=== PATIENT | female | born 1965 | race Caucasian/White ===

== ENCOUNTER → 2024-01-25 10:54 | Outpatient (REF) | payer OTHER, SELFPAY | LOC: HWRAD 10:54 | PROVIDERS: ATTENDING PHYSICIAN Physician Assistant Surgical; FAMILY PHYSICIAN Nurse Practitioner | DX: M46.1 Sacroiliitis, not elsewhere classified (principal) | CPT/HCPCS: 72170 ==

== ENCOUNTER 2025-01-02 21:16 | Emergency (ER) | payer OTHER, SELFPAY ==
[2025-01-02 21:18] VITALS: BP 154/84
[2025-01-02 22:26] VITALS: BP 133/60
[2025-01-02 22:33] LABS: % Basophils 0.5 % (0-2); % Eosinophils 1.1 % (0-6); % Immature Granulocytes 0.4 % (0-0.5); % Lymphocytes 10.4 % (20.5-51.1); % Monocytes 6.8 % (1.7-9.3); % Neutrophils 80.8 % (42.2-75.2); Absolute Basophils 0.1 10^3/uL (0-0.2); Absolute Eosinophils 0.1 10^3/uL (0-0.7); Absolute Lymphocytes 1.1 10^3/uL (1.2-3.4); Absolute Monocytes 0.7 10^3/uL (0.1-0.6); Absolute Neutrophils 8.2 10^3/uL (1.4-6.5); Hematocrit 42.3 % (37.0-47.0); Hemoglobin 13.7 g/dL (12.0-16.0); Mean Corp Hgb Conc. 32.4 g/dL (33.0-37.0); Mean Corpuscular Hgb 29.1 pg (27.0-31.0); Mean Corpuscular Volume 89.8 fL (81.0-99.0); Mean Platelet Volume 9.6 fL (7.4-10.4); Nucleated Red Blood Cells % 0 %; Platelet Count 279 10^3/uL (130-400); Red Blood Cell Count 4.71 10^6/uL (4.20-5.40); Red Cell Dist. Width 14.5 % (11.5-14.5); Urine Albumin Negative (Neg - Trace); Urine Bilirubin Negative (Negative); Urine Character Clear (Clear); Urine Color Yellow; Urine Glucose Negative (Negative); Urine Ketone Negative (Negative); Urine Leukocyte 2+ (Negative); Urine Nitrite Negative (Negative); Urine Occult Blood Negative (Negative); Urine Specific Gravity 1.015 (<1.030); Urine Urobilinogen 2+ (Neg - 1+); White Blood Cell Count 10.1 10^3/uL (4.8-10.8)
[2025-01-02 22:39] LABS: Urine Bacteria Few (Negative); Urine Red Blood Cell 0-2 /HPF (0-2)
[2025-01-02 22:43] LABS: INR 0.91; PT 12.6 Sec (11.4-14.6)
[2025-01-02 22:44] LABS: APTT 26.3 Sec (23.4-35.0)
[2025-01-02 22:49] LABS: Blood Urea Nitrogen 22 mg/dl (7-17); Calcium 9.3 mg/dl (8.4-10.2); Carbon Dioxide 34 mmol/L (22-30); Chloride 104 mmol/L (98-107); Glucose 111 mg/dl (70-99); Lipase 81 U/L (23-300); Sodium 141 mmol/L (135-145); eGFR > 60.00
[2025-01-02 23:00] VITALS: BP 145/66
[2025-01-02 23:03] LABS: Troponin I < 0.012 ng/ml
[2025-01-03 00:08] VITALS: BP 136/66
--- NOTE | 2025-01-03 00:26 | ED.GENMED ---
History of Present Illness
General
Chief Complaint: Abdominal Pain
Source: patient and family
Time Seen by Provider: 01/02/25 21:31
Nursing documentation reviewed up to this point in time: agreed with
History of Present Illness
History of Present Illness:
Pleasant 59-year-old female presents to the emergency department with left upper quadrant abdominal pain. She states that it began around 3 PM today. The pain was exacerbated by food. She did have a bowel movement which did not affect her
symptoms. Denies fever, chills, nausea or vomiting. Reports no chest pain or shortness of breath. Denies any previous abdominal surgeries. Reports no radiation to her pain.
Review of Systems
Review of Systems
Allergies reviewed?: Yes
Other source history: family
All Other Systems: ROS reviewed and negative except as documented in HPI and ROS
Constitutional: Reports no symptoms
EENT: Reports no symptoms
Respiratory: Reports no symptoms
Cardiac: Reports no symptoms
ABD/GI: Reports abdominal pain
: Reports no symptoms
Musculoskeletal: Reports no symptoms
Skin: Reports no symptoms
Neurological: Reports no symptoms
Endocrine: Reports no symptoms
Hematologic/Lymphatic: Reports no symptoms
Psychiatric: Reports no symptoms
Phy Exam
General Physical Exam
General Presentation: well appearing and no apparent distress
General Skin: warm and dry
General Habitus: normal
General Mental: alert
General Hydration: appears well hydrated
ENT Exam
ENT Exam: EOMI, pharynx normal, neck supple and normocephalic
Eye Exam
Eye Exam: PERRL, cornea clear and conjunctiva normal
Cardiovascular Exam
Cardiovascular Exam: regular rate/rhythm, no edema, no murmur and normal peripheral pulses
Pulmonary Exam
Pulmonary Exam: lungs clear, no respiratory distress, no rales, no crackles, no rhonchi, no stridor, no wheezing and no cough
Gastrointestinal Exam
Gastrointestinal Exam: normal bowel sounds, non tender, soft, no organomegaly, no pulsatile mass, non distended and other (No McBurney's point tenderness. Negative Rivera sign. Good bowel sounds x 4 quadrants. No tenderness to palpation at time
of exam.)
Neurological Exam
Neurological Exam: alert, oriented x3, no motor deficits and speech normal
Musculoskeletal Exam
Musculoskeletal Exam: full ROM and no edema
Skin Exam
Skin Exam: normal color, warm/dry, no rash and no petechia
Psychiatric Exam
Psychiatric Exam: normal mood/affect
Course
Orders/Labs/Results
Orders:
Orders
01/02/25 21:17
EKG [Electrocardiogram (*1)] Urgent
Reason for Study: Abdominal Pain
EKG- Treatment ONCE
01/02/25 22:24
Basic Metabolic Panel Urgent
Complete Blood Count/With Diff Urgent
Lactic Acid Urgent
Lipase Urgent
PTT Urgent
Prothrombin Time Urgent
Troponin I Urgent
Urinalysis Reflex To Culture Urgent
Date Specimen was Collected: 01/02/25
Time Specimen was Collected: 22:03
Urine Microscopic Reflex Cult Urgent
Urine Culture Urgent
RAJI Source: U
Specimen Description:
Date Specimen was Collected: 01/02/25
Time Specimen was Collected: 22:03
01/02/25 23:03
CT Abd/pelvis W Iv Cont Urgent
Comment:
Reason For Exam: diffuse abd pain
Abnormal Lab Results
01/02/25
22:24
MCHC 32.4 L g/dL
(33.0-37.0)
Absolute Neuts (auto) 8.2 H 10^3/uL
(1.4-6.5)
Absolute Lymphs (auto) 1.1 L 10^3/uL
(1.2-3.4)
Absolute Monos (auto) 0.7 H 10^3/uL
(0.1-0.6)
Neutrophils % 80.8 H %
(42.2-75.2)
Lymphocytes % 10.4 L %
(20.5-51.1)
Carbon Dioxide 34 H mmol/L
(22-30)
BUN 22 H mg/dl
(7-17)
Glucose 111 H mg/dl
(70-99)
Urine Urobilinogen 2+ A
(Neg - 1+)
Leukocyte Esterase Rfl 2+ A
(Negative)
Urine WBC (Reflex) 11-15 A /HPF
(0-5)
Urine Bacteria (Reflex) Few A
(Negative)
01/02/25 22:24
01/02/25 22:24
Vital Signs
Initial and Last Documented VS:
Initial Vital Signs
Temp Pulse Resp BP Pulse Ox
97.5 F 89 15 154/84 99
01/02/25 21:18 01/02/25 21:18 01/02/25 21:18 01/02/25 21:18 01/02/25 21:18
Last Documented Vital Signs
Temp Pulse Resp BP Pulse Ox
97.5 F 74 21 148/75 94
01/02/25 21:18 01/03/25 01:00 01/03/25 01:00 01/03/25 01:00 01/03/25 01:00
*Radiology
Radiology exam reviewed: radiology read reviewed
*Pulse Oximetry
Patient hypoxic: no
*Critical Care Note
Total Time (30-74mins, 75-104mins- exclusive of procedures): Not Applicable
Update Note
Update Note:
CT A/P W/IV CONTRAST
IMPRESSION:
No definite CT findings to account for the reported pain/symptoms.
No appendicitis or colitis.
No evidence of small bowel obstruction.
No free fluid or free air.
Unremarkable CT appearance of the gallbladder, biliary tract, and pancreas.
No evidence of hydroureteronephrosis or obstructing stone.
Unremarkable appearance of the pelvic viscera.
No AAA.
Case finalized at 1222am ET.
ED Attending Note
-
Portions of this chart may have been created with voice recognition software.� Occasional wrong word or��sound alike� substitutions may have occurred due to the inherent limitations of voice recognition software.
Discharge Plan
Departure
Patient Disposition: Home (Routine Discharge)
Date of Disposition: 01/03/25
Time of Disposition: 00:36
Patient with high blood pressure during this ER visit?: Yes
Discharge Problem:
Abdominal pain
Instructions: Abdominal Pain
Prescriptions:
No Action
multivitamin [Daily Vitamin] Tablet
1 tab PO DAILY
cyclobenzaprine 10 mg Tablet
10 mg PO HS
levothyroxine [Synthroid] 175 mcg Tablet
175 mcg PO DAILY
Rx Instructions:
takes 175 mcg x2 tab 1 time per week
cetirizine [Zyrtec] 10 mg Tablet
10 mg PO DAILY
lisinopril-hydrochlorothiazide 20-12.5 mg Tablet
1 tab PO DAILY
hydrocodone-acetaminophen 5-325 mg Tablet
1 tab PO Q6H PRN (Reason: pain)
rizatriptan 10 mg Tablet
10 mg PO PRN PRN (Reason: headaches)
etodolac 500 mg Tablet
500 mg PO BID
fluticasone propionate 50 mcg/actuation [place],Suspension
1 spray INTRANASAL BID
esomeprazole magnesium [Nexium] 20 mg Capsule,Delayed Release(Dr/Ec)
20 mg PO DAILY
duloxetine 60 mg Capsule,Delayed Release(Dr/Ec)
120 mg PO DAILY
pregabalin 200 mg Capsule
200 mg PO TID
Vitamin D3 100 mcg (4,000 unit) Capsule
100 mcg PO DAILY
Ajovy Autoinjector 225 mg/1.5 mL Auto-Injector
225 mg SC QMONTH
Referrals:
Celio Castillo CRNP [Family Provider] -
Activity Restrictions/Additional Instructions:
Thank You for choosing [facility].
It was a pleasure meeting you and taking part in your care. We hope for your continued healing and wellness.
Please read discharge instructions in their entirety. However, they are for general education and may not describe your exact diagnosis at discharge. Information on your ER visit and medical conditions were discussed with you along with appropriate
follow up information...
If indicated, please take your medications as instructed and indicated on discharge paperwork.
Please schedule a follow up appointment as directed. Call to schedule an appointment
Please return to the emergency department with ANY change in, persisting, or worsening of symptoms. If any of your symptoms do not improve, or persist, or become more severe within 6-12 hours, please return to the emergency department for further
care.
Please return to the emergency department if you develop a headache, neck pain/stiffness, fever greater than 100.4F, chest pain, shortness of breath, persistent nausea, vomiting, slurred speech, difficulty walking, numbness/tingling, weakness, signs
of infection or any other symptoms that are worrisome to you.
If you have any questions or concerns please do not hesitate to call the Hospital at or E-mail me directly at [email or web address]
Interventions
Interventions:
*Risk Screen - Suicide Last Done: 01/02/25 21:18
*General Assessment Last Done: 01/02/25 21:18
*Neglect/Abuse Screening Last Done: 01/02/25 21:18
*ED- Fall Risk Assessment Last Done: 01/03/25 00:09
*ED COVID-19 Vaccine History Last Done: 01/03/25 00:09
GE-Mvnhzv-Vtojdobqyf Assessment Last Done: 01/02/25 22:00
Discharge Date and Time
Print Language: SPANISH
[2025-01-03 01:00] VITALS: BP 148/75
== END 2025-01-03 01:15 | disposition home or self-care (01) ==
LOC: EMR 21:16
PROVIDERS: EMERGENCY PHYSICIAN Student in an Organized Health Care Education/Training Program
DX: R10.12 Left upper quadrant pain (principal); I10 Essential (primary) hypertension; K21.9 Gastro-esophageal reflux disease without esophagitis; M54.9 Dorsalgia, unspecified; G89.29 Other chronic pain; E03.9 Hypothyroidism, unspecified; F41.9 Anxiety disorder, unspecified; F32.A Depression, unspecified; Z91.040 Latex allergy status; Z88.5 Allergy status to narcotic agent; Z88.8 Allergy status to other drugs, medicaments and biological substances; Z91.018 Allergy to other foods; Z91.048 Other nonmedicinal substance allergy status
CPT/HCPCS: 99284; 74177; 80048; 81003; 81015; 83605; 83690; 84484; 85025; 85610; 85730; 87086; 93005; Q9967

== ENCOUNTER 2025-01-08 13:50 | Day surgery (SDC) | payer OTHER, SELFPAY ==
[2025-01-08] VITALS (9 sets, daily range): BP systolic 112–193; BP diastolic 56–81; BMI 53.2; BMI 52.3
--- NOTE | 2025-01-08 09:13 | ED.GENMED ---
History of Present Illness
General
Chief Complaint: Chest Pain
Time Seen by Provider: 01/08/25 09:12
History of Present Illness
History of Present Illness:
TIME OF INITIAL ENCOUNTER: 9:15 AM
HPI: The patient was seen here with upper abdominal pain last week and at that time had relatively unremarkable ED workup including CT abdomen pelvis. Mild hepatosplenomegaly was noted. Today, she had chest discomfort that started around 3 AM. It
feels somewhat similar to what happened last week. Although she has no shortness of breath she states that the pain worsens when she takes a breath in. She feels a sensation of an near the sternal notch.
EXAM:
GENERAL: Appears somewhat uncomfortable
HEENT: Moist oral mucosa
CARDIOVASCULAR: No murmurs, normal heart rate, regular rhythm, mild to moderate anterior lower chest wall tenderness
PULMONARY: No respiratory distress, breath sounds are clear and equal
ABDOMEN: Soft with no peritoneal signs, mild right upper quadrant tenderness, elevated BMI
NEUROLOGIC: Excellent strength all extremities, no coordination deficits
PSYCHIATRIC: Appears tearful and somewhat anxious at time appropriate mental status, normal insight and judgement
EXTREMITIES: Nontender, no edema, moves all extremities equally
SKIN: No rash, no lesions
NUMBER AND COMPLEXITY OF PROBLEMS ADDRESSED AT THE ENCOUNTER
� Chronic conditions affecting care: High blood pressure, hypothyroidism, anxiety/depression
� Acute Exacerbation and/or Progression of Chronic Illness: This is an acute problem
� Differential Diagnosis includes: Anxiety attack, biliary colic,
AMOUNT AND/OR COMPLEXITY OF DATA TO BE REVIEWED AND ANALYZED
� I performed an independent evaluation of and my interpretation is:
EKG: Sinus 78, leftward axis deviation, nonspecific ST abnormality
CT:
X-rays:
Laboratory Studies: White count normal, troponin, LFTs, lipase
Other: Ultrasound shows positive sonographic Rivera sign
� Review of other/old records: CAT scan from 01/02/2025 showed no acute abnormality
� Clinical information was obtained by an independent historian: I spoke to at bedside
� Prescriptions/Medications Considered but not given:
� Further testing considered but not performed:
RISK OF COMPLICATIONS AND/OR MORBIDITY OR MORTALITY OF PATIENT MANAGEMENT
� Social determinants of health affecting care: Lives at home
� Discussion with other providers: Discussed with Dr. Perez
� Escalation of care including admission/observation vs risk of discharge considered: The patient appears somewhat tearful and anxious and uncomfortable. She was given Toradol and Ativan. She states she does take anxiety
medicine normally but did not take any today.
ANY OTHER UPDATES:
The patient was given Ativan and Toradol and on reassessment she feels and appears improved. However she still has right upper quadrant tenderness and does have abnormal ultrasound imaging. Discussed with Dr. Perez.
1 PM: The patient was seen by Dr. Perez who agrees to admit to his service for further management. Zosyn ordered.
Phy Exam
Physical Exam
Physical Exam:
See HPI
Scores
Heart Score for Chest Pain Patients
STEMI patient?: Not applicable
Course
Orders/Labs/Results
Orders:
Orders
01/08/25 08:57
Electrocardiogram (*1) Urgent
Reason for Study: Chest Pain
EKG- Treatment ONCE
01/08/25 09:26
Ketorolac [Toradol] 15 mg IV NOW STA
Lorazepam [Ativan] 1 mg IV NOW STA
01/08/25 09:27
CR Chest - 2 Views Urgent
Comment:
Reason For Exam: pain
01/08/25 09:29
US Abdomen Complete/Upper Urgent
Comment:
Reason For Exam: upper pain
01/08/25 09:44
Complete Blood Count/With Diff Urgent
Comprehensive Metabolic Panel Urgent
Comment: ADD ON
Direct Bilirubin Urgent
Comment: ADD ON
Lipase Urgent
Troponin I Urgent
01/08/25 13:13
Piperacillin/Tazo 3.375 Gram [Zosyn] 3.375 gram in 50 ml IV NOW
01/08/25 13:23
Admit/Transfer Patient As Directed
Co-Sign Provider:
Level of Care: Observation services
Assign to:: Medical/Surgical
Physician / Group: Gen surg/Chris
Diagnosis: Cholecystitis
PRN Pain Medication Management As Directed
May give lesser potent ordered pain med per pt: Yes
preference::
Protocol:: Medication orders for pain may be administered in a
manner that supports deferring to patient preference
when the pt is:
- Requesting an ordered lesser potent pain medication.
Least to most potent pain medications are defined
as: acetaminophen < NSAID < tramadol < opioids
(morphine, oxycodone, hydromorphone).
- Requesting a lesser dose of the same medication IF
ORDERED.
- Requesting a less intrusive route of administration
if both routes are prescribed by the provider (PO <
IV).
01/08/25 13:25
Code Status As Directed
Resuscitation Status: Full Code
01/08/25 13:43
Add On- LAB Routine
Tests Added?: lfts
Abnormal Lab Results
01/08/25
09:44
Abs Immat Gran (auto) 0.1 H 10^3/uL
(0-0.05)
Absolute Neuts (auto) 7.7 H 10^3/uL
(1.4-6.5)
Absolute Lymphs (auto) 1.1 L 10^3/uL
(1.2-3.4)
Neutrophils % 81.3 H %
(42.2-75.2)
Lymphocytes % 11.2 L %
(20.5-51.1)
BUN 25 H mg/dl
(7-17)
Glucose 109 H mg/dl
(70-99)
01/08/25 09:44
01/08/25 09:44
Vital Signs
Initial and Last Documented VS:
Initial Vital Signs
Temp Pulse Resp BP Pulse Ox
36.8 C 71 16 193/77 96
01/08/25 09:01 01/08/25 09:01 01/08/25 09:01 01/08/25 09:01 01/08/25 09:01
Last Documented Vital Signs
Temp Pulse Resp BP Pulse Ox
36.8 C 74 22 123/64 95
01/08/25 09:01 01/08/25 12:00 01/08/25 12:00 01/08/25 12:00 01/08/25 12:00
*Critical Care Note
Total Time (30-74mins, 75-104mins- exclusive of procedures): Not Applicable
ED Attending Note
-
Portions of this chart may have been created with voice recognition software.� Occasional wrong word or��sound alike� substitutions may have occurred due to the inherent limitations of voice recognition software.
Discharge Plan
Departure
Patient Disposition: Admit
Date of Disposition: 01/08/25
Time of Disposition: 13:13
Presentation/result/management discussed w/ accepting MD/DO: dr reina
Discharge Problem:
Acute cholecystitis
Interventions
Interventions:
*Risk Screen - Suicide Last Done: 01/08/25 09:05
*General Assessment Last Done: 01/08/25 09:56
*Neglect/Abuse Screening Last Done: 01/08/25 09:05
*ED- Fall Risk Assessment Last Done: 01/08/25 09:56
*ED COVID-19 Vaccine History Last Done: 01/08/25 09:56
ED- Cardiac Assessment Last Done: 01/08/25 10:00
[2025-01-08] MEDS: TORADOL 15 MG IV (10:04)
[2025-01-08] MEDS: ATIVAN 1 MG IV (10:07)
[2025-01-08 10:27] LABS: % Basophils 0.4 % (0-2); % Eosinophils 1.3 % (0-6); % Immature Granulocytes 0.5 % (0-0.5); % Lymphocytes 11.2 % (20.5-51.1); % Monocytes 5.3 % (1.7-9.3); % Neutrophils 81.3 % (42.2-75.2); Absolute Eosinophils 0.1 10^3/uL (0-0.7); Absolute Immature Granulocytes 0.1 10^3/uL (0-0.05); Absolute Lymphocytes 1.1 10^3/uL (1.2-3.4); Absolute Monocytes 0.5 10^3/uL (0.1-0.6); Absolute Neutrophils 7.7 10^3/uL (1.4-6.5); Hematocrit 40.8 % (37.0-47.0); Hemoglobin 13.6 g/dL (12.0-16.0); Mean Corp Hgb Conc. 33.3 g/dL (33.0-37.0); Mean Corpuscular Hgb 29.5 pg (27.0-31.0); Mean Corpuscular Volume 88.5 fL (81.0-99.0); Mean Platelet Volume 9.8 fL (7.4-10.4); Nucleated Red Blood Cells % 0 %; Platelet Count 227 10^3/uL (130-400); Red Blood Cell Count 4.61 10^6/uL (4.20-5.40); Red Cell Dist. Width 14.4 % (11.5-14.5); White Blood Cell Count 9.5 10^3/uL (4.8-10.8)
[2025-01-08 10:46] LABS: Blood Urea Nitrogen 25 mg/dl (7-17); Calcium 9.6 mg/dl (8.4-10.2); Carbon Dioxide 29 mmol/L (22-30); Chloride 105 mmol/L (98-107); Estimated Creatinine Clearance 119 ml/min; Glucose 109 mg/dl (70-99); Lipase 69 U/L (23-300); Sodium 139 mmol/L (135-145); eGFR > 60.00
[2025-01-08 10:53] LABS: Troponin I < 0.012 ng/ml
[2025-01-08] MEDS: ZOSYN 50 IV ×2 (13:18→16:53)
--- NOTE | 2025-01-08 13:30 | HPS.HSE ---
Addendum entered and electronically signed by Dewey Perez MD 01/09/25 07:40:
I saw and examined the patient independently.
The Rig Operator's note was reviewed and I agree with the note, assessment and plan except where noted below.
Comment: This is a 59-year-old female with a history of a total abdominal hysterectomy and and morbid obesity (BMI 52) who presents with a 1 day history of postprandial right upper quadrant pain in the setting of a similar episode roughly
a week ago. CT scan at that time was unremarkable but ultrasound today showed demonstrates stigmata of cholecystitis. LFTs pending
Will plan for a robotic cholecystectomy with cholangiogram in the OR today.
N.p.o., IV fluids, IV antibiotics.
Risks/Benefits/Alternatives, expected postoperative course and possible complications (bleeding, infection, injury to surrounding structures, acute/chronic pain) discussed at length. Patient wishes to proceed with surgery. All questions answered.
Consent obtained.
I spent 70 minutes in total for the care of this patient today including direct patient care and counseling, reviewing labs, imaging, coordination of care, as well as documentation.
Original Note:
Family Physician
-
Family Physician: TERESA Schaeffer
Chief Complaint
-
Epigastric pain
History of Present Illness
Ms Mariscal is a 59 yo female with a h/o hypothyroid, htn, SI joint fusions, FARZANEH and who presents through the ED with epigastric pain which awoke her from sleep early this morning around 3am. She notes associated nausea without vomiting as
well as pain radiating down her right abdomen. She felt cold and clammy. she attempted to eat breakfast this am but her pain worsened causing her to present for evaluation through the ED. She had a similar episode of pain last Thursday in the
afternoon and presented for evaluation through the ED at that time as well with negative work up including CT abd/pelvis. Currently nausea is resolved but pain is still present with tenderness to the RUQ and epigastrium. She denies fevers. She
denies jaundice or changes to urine or stool.
Medical History
Past Medical History
Past Medical History: Reports Fibromyalgia, HTN, Hypothyroidism and Other (morbid obesity, migraines, chronic back pain, JODY with cpap)
Past Surgical History: Reports , Gynocological (FARZANEH) and Orthopedic (BL SI joint fusions, BL meniscus repairs)
Social History
Tobacco: Non-smoker
Alcohol: None
Family History
Family History: Other (Father from complications related to gallbladder infection)
Allergies / Home Medications
Allergies reflects when Allergies were last updated in [employer].
Home Medications with original date entered in [employer]
Allergy/Medication List:
Patient Allergies
Allergy/AdvReac Type Severity Reaction Status Date / Time
banana Allergy tingly Verified 01/08/25 09:05
tongue
bupropion (From Wellbutrin) Allergy SOB,hives Verified 01/08/25 09:05
latex Allergy itchy,hives Verified 01/08/25 09:05
,redness
venlafaxine (From Effexor) Allergy SOB,hives Verified 01/08/25 09:05
oxycodone (From Percocet) AdvReac hives,itchy Verified 01/08/25 09:05
environmental Allergy nasal Uncoded 01/08/25 09:05
congestion
�Medication �Instructions �Recorded �Confirmed �Type
cetirizine 10 mg tablet (Zyrtec) 10 mg PO DAILY 05/06/22 01/08/25 History
cholecalciferol (vitamin D3) 100 100 mcg PO DAILY 05/06/22 01/08/25 History
mcg (4,000 unit) capsule
cyclobenzaprine 10 mg tablet 10 mg PO HS 05/06/22 01/08/25 History
duloxetine 60 mg capsule,delayed 120 mg PO DAILY 05/06/22 01/08/25 History
release
esomeprazole magnesium 20 mg 20 mg PO DAILY 05/06/22 01/08/25 History
capsule,delayed release (Nexium)
fluticasone propionate 50 1 spray intranasal BID 05/06/22 01/08/25 History
mcg/actuation nasal
spray,suspension
hydrocodone 5 mg-acetaminophen 325 1 tab PO Q6H PRN pain 05/06/22 01/08/25 History
mg tablet
levothyroxine 175 mcg tablet 175 mcg PO DAILY 05/06/22 01/08/25 History
(Synthroid)
lisinopril 20 1 tab PO DAILY 05/06/22 01/08/25 History
mg-hydrochlorothiazide 12.5 mg
tablet
multivitamin 1 tab PO DAILY 05/06/22 01/08/25 History
pregabalin 200 mg capsule 200 mg PO TID 05/06/22 01/08/25 History
rizatriptan 10 mg tablet 10 mg PO PRN PRN headaches 05/06/22 01/08/25 History
Review of Systems
-
History Source: Patient and Family
A 12 point ROS was completed and negative except as noted: Yes
Physical Exam
Vital Signs
Vital Signs
Temp Pulse Resp BP Pulse Ox
98.2 F 74 22 123/64 95
01/08/25 09:01 01/08/25 12:00 01/08/25 12:00 01/08/25 12:00 01/08/25 12:00
Physical Exam
General: No Apparent Distress and Conversant
HEENT: NormoCephalic and Moist mucous membranes
Respiratory: Non Labored Respirations
Cardiac: Regular Rhythm
GI: Soft, Non Distended, Tender (RUQ into epigastrium) and Other (obese)
Skin: Warm and Dry; No Jaundice
Neuro: Awake, Alert and AO x 3
Psych: Calm
Laboratory Results
-
01/08/25 09:44
01/08/25 09:44
Laboratory Results
Total Bilirubin Cancelled 01/08/25 09:44
AST Cancelled 01/08/25 09:44
ALT Cancelled 01/08/25 09:44
Alkaline Phosphatase Cancelled 01/08/25 09:44
Troponin I < 0.012 ng/ml 01/08/25 09:44
Lipase 69 U/L (23-300) 01/08/25 09:44
Data Reviewed
-
CT Scan: Image Personally Visualized and interpreted (contracted gallbladder with mild hepatosplenomegaly, no pericholecystic edema/stranding on CT from 01/02/25), Report Reviewed by me, Discussed with Physician, Discussed with Patient and Discussed
with Family
Ultrasound: Image Personally Visualized and interpreted, Report Reviewed by me, Discussed with Physician, Discussed with Patient and Discussed with Family
Lab Data: Labs Reviewed by me, Discussed with Physician, Discussed with Patient and Discussed with Family
Old Records: Reviewed
Impression/Plan
-
IMPRESSION: 59 yo female with h/o HTN, Hypothyroid, fibromyalgia/chronic back pain, morbid obesity, , FARZANEH and SI joint fusion who presented with episode of biliary colic on 01/02/25 presents with recurrent pain awakening her from sleep this
am with worsening pain upon eating breakfast. Tender to the RUQ and epigastrium with ABD US findings today consistent with acute calculous cholecystitis. No leukocytosis, lipase normal. Afebrile, VSS.
PLAN:
Start ABX with IV zosyn
Add on LFT's to today's labs and trend labs in am
Will plan for OR tomorrow for robotic cholecystectomy
Ok for clears tonight, NPO after midnight
Analgesics/antiemetics prn
IVF with NSS at 80ml/hr
Continue home meds
On PPI at home, will continue
SCDs for VTE ppx
[2025-01-08] MEDS: CYMBALTA DELAYED RELEASE 120 MG PO (15:46)
[2025-01-08] MEDS: LYRICA 200 MG PO ×2 (15:46→21:17)
[2025-01-08] MEDS: PROTONIX 40 MG PO (15:46)
[2025-01-08] MEDS: NSS 1000 IV (15:48)
[2025-01-08] MEDS: NORCO 5/325 1 TABLET PO (19:57)
[2025-01-08] MEDS: FLEXERIL 10 MG PO (21:18)
[2025-01-09] VITALS (9 sets, daily range): BP systolic 115–165; BP diastolic 62–91
[2025-01-09] MEDS: ZOSYN 50 IV ×4 (00:35→23:36)
[2025-01-09] MEDS: NSS 1000 IV ×2 (05:28→21:27)
[2025-01-09] MEDS: SYNTHROID 175 MCG PO (05:29)
[2025-01-09 07:27] LABS: Hematocrit 39.6 % (37.0-47.0); Hemoglobin 12.7 g/dL (12.0-16.0); Mean Corp Hgb Conc. 32.1 g/dL (33.0-37.0); Mean Corpuscular Volume 90.4 fL (81.0-99.0); Mean Platelet Volume 10.3 fL (7.4-10.4); Platelet Count 213 10^3/uL (130-400); Red Blood Cell Count 4.38 10^6/uL (4.20-5.40); Red Cell Dist. Width 14.7 % (11.5-14.5); White Blood Cell Count 5.1 10^3/uL (4.8-10.8)
--- NOTE | 2025-01-09 07:40 | W.SUR.PREOP ---
Pre-Operative Surgical Note
-
I have examined this patient prior to the performance of the scheduled procedure.
The patient's condition is unchanged from the time of the current History and
Physical and the patient is able to undergo the scheduled procedure.
[2025-01-09 08:22] LABS: ALT (SGPT) 184 U/L (0-35); AST (SGOT) 91 U/L (14-36); Albumin 3.7 g/dl (3.5-5.0); Alkaline Phosphatase 157 U/L (38-126); Blood Urea Nitrogen 17 mg/dl (7-17); Calcium 8.8 mg/dl (8.4-10.2); Carbon Dioxide 30 mmol/L (22-30); Chloride 106 mmol/L (98-107); Estimated Creatinine Clearance 105 ml/min; Glucose 99 mg/dl (70-99); Potassium 3.9 mmol/L (3.5-5.1); Sodium 140 mmol/L (135-145); Total Bilirubin 1.7 mg/dl (0.2-1.3); eGFR > 60.00
[2025-01-09] MEDS: LYRICA 200 MG PO ×2 (09:09→21:27)
[2025-01-09] MEDS: CYMBALTA DELAYED RELEASE 120 MG PO (09:09)
[2025-01-09] MEDS: PROTONIX 40 MG PO (09:09)
[2025-01-09] MEDS: ZYRTEC 10 MG PO (09:10)
[2025-01-09] MEDS: DILAUDID 1 MG IV ×2 (09:43→13:51)
[2025-01-09 11:05] LABS: Direct Bilirubin 0.3 mg/dl (0.0-0.4)
--- NOTE | 2025-01-09 11:26 | CM ---
CM following re: discharge planning.
Reviewed pt's chart, met with pt and pt's at bedside.
Pt is a 59 year old female, admitted with OBS status and primary dx of Epigastric pain. per Surgery, pt to OR today. OBS status explained to the pt, she expressed her understanding, OBS letter signed, placed on chart, pt has a copy.
Pt reports she lives with spouse and a son in a 2SH, 1 step to enter. Pt described herself as independent in all areas [employer] and pt stated she is not anticipate and after care discharge needs.
PCP: Celio Castillo
Pharmacy: [facility]
D/C plan: home with anticipated no needs. to transport at discharge.
CM will follow with discharge plan updates as hospitalization progresses.
[2025-01-09] MEDS: ZOFRAN 4 MG IV (15:29)
[2025-01-09] MEDS: LYRICA PO (16:51)
--- NOTE | 2025-01-09 19:38 | W.IMMPOSTOP ---
Surgical Immed Post Op Note
-
Primary Surgeon: Dewey Perez MD
Assisting Surgeon: None
Pre-op Diagnosis: Acute cholecystitis, morbid obesity
Post-op Diagnosis: Acute cholecystitis, morbid obesity, choledocholithiasis
Procedure Performed: Laparoscopic cholecystectomy with cholangiogram
Anesthesia Type: General
Specimen / Cultures: Gallbladder and contents
Estimated Blood Loss: 41 cc
Complications: [None]
Operative Findings: Significant adhesions over the anterior surface of the gallbladder that were carefully lysed with electrocautery and blunt dissection. A critical view of safety was obtained prior to a cholangiogram which demonstrated nonfilling
of the duodenum though a clear-cut filling defect was not visualized. This nonfilling of the duodenum remained despite giving 1 mg of glucagon. The duct was ligated with 2 Weck clips. There was some spillage of stones from the cystic duct
anatomy. There was also some bleeding that stopped with a pressure, bipolar cautery and Surgiflo was applied at the end of the procedure to ensure hemostasis.
POST OP PLAN:
Imaging: [None]
Labs: Routine AM, check CMP if bilirubin continue to rise will need MRCP to confirm choledocholithiasis and GI consult
Okay for clears, n.p.o. at midnight
Analgesia: Tylenol 650mg q6 Casi, Ana 5mg q6 PRN, Dilaudid 0.5mg q2h PRN
Neuro/vascular checks: q4h
AC/AP: Hold Therapeutic AC, Ok for DVT PPx
Activity: Ad Ramandeep
Wound/Incisions/Drains: Routine
Abx: Continue antibiotics x 4 days
Dispo: RNF
[2025-01-09] MEDS: ZOSYN IV (20:50)
[2025-01-09] MEDS: FLEXERIL 10 MG PO (21:27)
--- NOTE | 2025-01-09 23:15 | PTCARENOTE ---
Addendum entered by Duncan Nguyen RN 01/09/25 23:16:
dr Perez requested telemetry orders. pt placed on tele- sinus. using own cpap- - on cpap
Original Note:
2100 received pt from pacu- drowsy but arousable. lap sites intact. medicated with prns. fluids per orders. npo per orders
[2025-01-10] VITALS (7 sets, daily range): BP systolic 117–155; BP diastolic 57–72
[2025-01-10] MEDS: DILAUDID 1 MG IV (02:55)
[2025-01-10] MEDS: ZOSYN 50 IV ×4 (05:00→23:06)
[2025-01-10] MEDS: SYNTHROID 175 MCG PO (05:00)
[2025-01-10] MEDS: NORCO 5/325 1 TABLET PO (08:35)
[2025-01-10] MEDS: CYMBALTA DELAYED RELEASE 120 MG PO (08:37)
[2025-01-10] MEDS: PROTONIX 40 MG PO (08:37)
[2025-01-10] MEDS: ZYRTEC 10 MG PO (08:37)
[2025-01-10] MEDS: LYRICA 200 MG PO ×3 (08:37→21:24)
[2025-01-10 09:02] LABS: % Basophils 0.1 % (0-2); % Eosinophils 0.1 % (0-6); % Immature Granulocytes 0.3 % (0-0.5); % Lymphocytes 8.2 % (20.5-51.1); % Monocytes 3.6 % (1.7-9.3); % Neutrophils 87.7 % (42.2-75.2); Absolute Lymphocytes 0.6 10^3/uL (1.2-3.4); Absolute Monocytes 0.3 10^3/uL (0.1-0.6); Absolute Neutrophils 6.7 10^3/uL (1.4-6.5); Hematocrit 39.5 % (37.0-47.0); Hemoglobin 12.4 g/dL (12.0-16.0); Mean Corp Hgb Conc. 31.4 g/dL (33.0-37.0); Mean Corpuscular Hgb 29.3 pg (27.0-31.0); Mean Corpuscular Volume 93.4 fL (81.0-99.0); Nucleated Red Blood Cells % 0 %; Platelet Count 213 10^3/uL (130-400); Red Blood Cell Count 4.23 10^6/uL (4.20-5.40); Red Cell Dist. Width 14.6 % (11.5-14.5); White Blood Cell Count 7.6 10^3/uL (4.8-10.8)
[2025-01-10 10:12] LABS: ALT (SGPT) 127 U/L (0-35); AST (SGOT) 55 U/L (14-36); Albumin 3.7 g/dl (3.5-5.0); Alkaline Phosphatase 128 U/L (38-126); Blood Urea Nitrogen 16 mg/dl (7-17); Calcium 8.7 mg/dl (8.4-10.2); Carbon Dioxide 26 mmol/L (22-30); Chloride 108 mmol/L (98-107); Estimated Creatinine Clearance 105 ml/min; Glucose 101 mg/dl (70-99); Potassium 4.8 mmol/L (3.5-5.1); Sodium 141 mmol/L (135-145); Total Bilirubin 1.1 mg/dl (0.2-1.3); Total Protein 5.9 g/dl (6.3-8.2); eGFR > 60.00
--- NOTE | 2025-01-10 11:05 | W.PN.GS2 ---
Today's Communication / Plan
-
Will advance diet and recheck CMP this afternoon as long as this continues to downtrend anticipated discharge home later today otherwise may need to keep her for an MRCP
Will continue antibiotics x 4 days
DVT prophylaxis
Assessment / Plan
-
This is a 59-year-old female who presents with acute calculus cholecystitis now postoperative day 1 from a laparoscopic assisted robotic cholecystectomy with cholangiogram. There was no filling of the duodenum concerning for a possible obstructing
stone.
Nevertheless the patient's blood work shows her bilirubin is downtrending appropriately.
Will advance diet and recheck CMP this afternoon as long as this continues to downtrend anticipated discharge home later today otherwise may need to keep her for an MRCP
Will continue antibiotics x 4 days
DVT prophylaxis
Time Spent
Total Time Spent with Patient (in minutes): 20
Subjective Data
-
Date of Service: January 10, 2025
Interval Events:
No acute events overnight. Slept well. Pain Controlled. Denies Nausea/Vomiting.
Objective Data
-
Intake and Output
01/09/25 01/10/25 01/11/25
06:59 06:59 06:59
Intake Total 720 / 720 2049
Balance 720 / 720 2049
Intake:
Oral fluids 720 / 720 120 / 120
IV fluids (Total) 1879
Normosol 200 / 200
IV piggybacks 50 / 50
Other:
Number of approximated MODERATE 4 2
amounts of urine
Number of approximated LARGE 1 2
amounts of urine
Vital Signs
Temp Pulse Resp BP Pulse Ox
98.4 F 71 17 155/70 95
01/10/25 06:59 01/10/25 06:59 01/10/25 06:59 01/10/25 06:59 01/10/25 06:59
Lab Results
01/10/25 08:42
Calcium 8.7 mg/dl (8.4-10.2) 01/10/25 08:42
Total Bilirubin 1.1 mg/dl (0.2-1.3) 01/10/25 08:42
Direct Bilirubin 0.3 mg/dl (0.0-0.4) 01/09/25 06:46
AST 55 U/L (14-36) H 01/10/25 08:42
ALT 127 U/L (0-35) H 01/10/25 08:42
Alkaline Phosphatase 128 U/L (38-126) H 01/10/25 08:42
Total Protein 5.9 g/dl (6.3-8.2) L 01/10/25 08:42
Albumin 3.7 g/dl (3.5-5.0) 01/10/25 08:42
Physical Exam
-
GENERAL/NEURO: Awake, Alert, no distress
CHEST: Unlabored breathing on RA
ABDOMEN: Soft, Non-Tender, Non-Distended, incisions clean dry and intact
Patient has a diego catheter: No
Patient has a central line: No
--- NOTE | 2025-01-10 11:14 | OR.RPT ---
Operative Report
Operative Report
Patient Name: Edel Mariscal
: 1965
Date of Operation: 01/09/2025
Preoperative Diagnosis: Acute cholecystitis
Postoperative Diagnosis: Same
Procedure(s):
Robotic Cholecystectomy with intraoperative cholangiogram
Surgeon(s):
Dr. Perez
Senior Geologist(s):
MATIAS Menchaca
Anesthesia: General
Estimated Blood Loss: 41 cc
Urine Output: None
Drains/Lines/Implants: None
Specimens:
1. Gallbladder and contents
HPI/Surgical Indications:
This is a 59 year old female with a history of morbid obesity (BMI 50+) who presents with abdominal pain. Exam, labs and imaging are consistent with acute calculus cholecystitis. Risks/Benefits/Alternatives were discussed at length, and the patient
agreed to proceed with surgery.
Operative Findings: Significant adhesions over the anterior surface of the gallbladder that were carefully lysed with electrocautery and blunt dissection. A critical view of safety was obtained prior to a cholangiogram which demonstrated nonfilling
of the duodenum though a clear-cut filling defect was not visualized. This nonfilling of the duodenum remained despite giving 1 mg of glucagon. The duct was ligated with 2 Weck clips. There was some spillage of stones from the cystic duct
anatomy. There was also some bleeding that stopped with a pressure, bipolar cautery and Surgiflo was applied at the end of the procedure to ensure hemostasis.
Procedure Description:
The patient was brought to the Operating Room and placed in the supine position with arms tucked. IV antibiotics were infused and sequential compression devices were confirmed to be on. Following uneventful induction of general endotracheal
anesthesia, an orogastric tube was placed. The abdomen was prepped and draped in the usual sterile fashion. The abdomen was entered using a Veress technique at Ruiz's point followed by an 8 mm trocar in the midline. Pneumoperitoneum to 15 mmHg
pressure was obtained without difficulty and we confirmed that no injury had occurred during our entry. The patient was positioned in reverse trendelenberg and rotated with the right side up slightly. Three (3) 8mm trocars were then placed along the
abdomen transversely. A forced bipolar was placed in the left hand, a pro grasper in the left middle port, camera in the right middle port and a hook in the far right port. The fundus of the gallbladder was elevated and the peritoneum overlying
the triangle of Calot was incised. There was a significant amount of adhesions from the periduodenal fat to the surface of the gallbladder that were carefully lysed with blunt and electrocautery dissection first. A 4 x 4 Ray-Art was inserted to
help absorb any bleeding. The cystic duct/gallbladder junction was identified, dissected circumferentially. The cystic artery was identified medially and was dissected circumferentially. A critical view was obtained. The artery was ligated with
2 Weck clips and divided, the duct was ligated proximally with a Weck clip and a ductotomy was made. There were a few small yellow stones that were removed from the cystic duct. A cholangiocatheter was then inserted through a stab incision and
passed with a Rolando Magallanes and inserted into the ductotomy. The robot was undocked and the C-arm was brought in. A cholangiogram was performed which showed normal biliary anatomy and no overt filling defects however there was no contrast in the
duodenum. 1 mg of glucagon was administered and we waited 2 minutes for this to take effect. A repeat cholangiogram was performed with the exact same imaging findings. We elected at this point to conclude our cholangiogram. The C arm was removed
as well as the cholangiocatheter and the robot was redocked. The duct was then controlled with 2 Weck clips proximally and then divided. The remaining soft tissue attachments of the gallbladder to the liver bed were then divided using
electrocautery. There was no spillage of bile, or stones. The gallbladder bed was inspected and excellent hemostasis was obtained. This was assured by applying Surgiflo in the hilum and along the entire fossa. The gallbladder was extracted
through the midline 8 mm trocar site using an endocatch bag, as was the 4 x 4 Ray-Art and 2 gallstones that had been removed through our ductotomy. The abdomen was again inspected and excellent hemostasis was assured. The midline port site was
closed with a [id number] 0 PDS suture. All trocar sites were closed at the skin level using 4-0 Monocryl followed by Dermabond. Overall, the patient tolerated the procedure well and was taken to the Recovery Room postoperatively in stable
condition.
I was the attending physician and performed the procedure with assistance from the THERAPY COORDINATOR above. I was present for all portions of the case, excluding skin closure.
Dewey Perez MD
--- NOTE | 2025-01-10 13:07 | CON.CAR ---
Addendum entered and electronically signed by Melvin Adams MD 01/10/25 14:02:
Patient seen and examined in collaboration with PRINTING PRESSMAN; agree with below.
- 59-year-old female with hypertension, hypothyroidism, morbid obesity, and obstructive sleep apnea (on home CPAP) who underwent robotic cholecystectomy yesterday; cardiology consulted for new onset PAF that occurred during the procedure.
- Upon review of the strips, it did appears that the patient did have a brief episode of transient PAF; C2V score equals 2 currently.
- Will check an echocardiogram to exclude CHF, as this affects the C2V score.
- Will check a hemoglobin A1c to exclude diabetes, as this affects the C2V score.
- Check TSH.
- If C2V is >3, then Eliquis will be recommended.
Original Note:
Consultation
Consultation Request
Date/Time Consultation Requested: 01/10/2025 11:55
Date/Time Consultation Performed: 01/10/2025 12:30
Requesting Provider: Dr. Berman
Performing Provider: TERESA Gomez for Dr. Adams
Reason for Consultation: New onset atrial fibrillation
Medical History
-
Chief Complaint: Abdominal pain
History of Present Illness:
Edel Mariscal is a 59 year old female with HTN, hypothyroidism, morbid obesity, and JODY (on CPAP) who presented to the ER with abdominal pain on 01/08/2025. Eating worsened the pain. She underwent robotic Cholecystectomy with intraoperative
cholangiogram with Dr. Berman yesterday. Anesthesia noted some preoperative atrial fibrillation. She is feeling well without chest pain, shortness of breath, and palpitations.
Past Medical History
Past Medical History: GERD, HTN, Hypothyroidism and Other (JODY)
Past Surgical History: Cholecystectomy, , Gynecological and Orthopedic
Social History
Tobacco: Non-Smoker
Alcohol: None
Drug: None
Family History
Family History: Reviewed & Not Pertinent and Other (Father due to gangrenous cholecystitis. )
Allergies / Home Medications
Allergy/AdvReac Type Severity Reaction Status Date / Time
banana Allergy tingly Verified 01/08/25 09:05
tongue
bupropion (From Wellbutrin) Allergy SOB,hives Verified 01/08/25 09:05
latex Allergy itchy,hives Verified 01/08/25 09:05
,redness
venlafaxine (From Effexor) Allergy SOB,hives Verified 01/08/25 09:05
oxycodone (From Percocet) AdvReac hives,itchy Verified 01/08/25 09:05
environmental Allergy nasal Uncoded 01/08/25 09:05
congestion
�Medication �Instructions �Recorded �Confirmed �Type
cetirizine 10 mg tablet (Zyrtec) 10 mg PO DAILY Allergies 05/06/22 01/08/25 History
cholecalciferol (vitamin D3) 100 100 mcg PO DAILY Supplement 05/06/22 01/08/25 History
mcg (4,000 unit) capsule
cyclobenzaprine 10 mg tablet 10 mg PO HS Muscle Spasms 05/06/22 01/08/25 History
duloxetine 60 mg capsule,delayed 120 mg PO DAILY Depression 05/06/22 01/08/25 History
release
esomeprazole magnesium 20 mg 20 mg PO DAILY Gastrointestinal 05/06/22 01/08/25 History
capsule,delayed release (Nexium) Issue
fluticasone propionate 50 1 spray intranasal BID Allergies 05/06/22 01/08/25 History
mcg/actuation nasal
spray,suspension
hydrocodone 5 mg-acetaminophen 325 1 tab PO Q6H PRN pain 05/06/22 01/08/25 History
mg tablet
levothyroxine 175 mcg tablet 175 mcg PO DAILY@06 Thyroid 05/06/22 01/08/25 History
(Synthroid)
lisinopril 20 1 tab PO DAILY Blood Pressure 05/06/22 01/08/25 History
mg-hydrochlorothiazide 12.5 mg
tablet
multivitamin 1 tab PO DAILY Supplement 05/06/22 01/08/25 History
pregabalin 200 mg capsule 200 mg PO TID Pain 05/06/22 01/08/25 History
rizatriptan 10 mg tablet 10 mg PO PRN PRN headaches 05/06/22 01/08/25 History
acetaminophen 325 mg tablet 650 mg (2 x 325 mg) PO Q6HPRN PRN 01/10/25 Rx
mild pain #14 tabs
amoxicillin 500 mg-potassium 1 tab PO Q12H #6 tabs 01/10/25 Rx
clavulanate 125 mg tablet
(Augmentin)
ibuprofen 600 mg tablet 600 mg PO Q6H PRN pain #14 tabs 01/10/25 Rx
tramadol 50 mg tablet 25 mg (1/2 x 50 mg) PO Q6HPRN PRN 01/10/25 Rx
severe pain/breakthrough pain #12
tabs
Review of Systems
-
History Source: Patient
All other systems: Negative unless noted
Constitutional: Fatigue
EENT: No Symptoms
Respiratory: No Symptoms
Cardiac: No Symptoms
Abdomen/GI: Other (bloating)
: No Symptoms
Musculoskeletal: No Symptoms
Skin: No Symptoms
Neurological: No Symptoms
Endocrine: No Symptoms
Hematologic/Lymphatic: No Symptoms
Physical Exam
Vital Signs
Temp Pulse Resp BP Pulse Ox
98.5 F 71 16 142/67 94
01/10/25 11:05 01/10/25 11:05 01/10/25 11:05 01/10/25 11:05 01/10/25 11:05
Lab Results
01/10/25 08:42
Troponin I < 0.012 ng/ml 01/08/25 09:44
Physical Exam
General: Well Developed, Well Nourished and No Apparent Distress
HEENT: Normocephalic, Anicteric and Moist Mucous Membranes
Respiratory: Clear and Non Labored Respirations
Cardiac: S1/S2 and Regular Rhythm; Negative Peripheral Edema
Breast: Deferred by me
GI: Soft, Non Distended, Normal Bowel Sounds and Tender
Rectal: Deferred by Provider
Genito-urinary: No Costovertebral Tender
Musculoskeletal: No Clubbing, No Cyanosis and No Edema
Skin: Warm and Dry
Neuro: AO x 3
Hematologic/Lymphatic: No Lymphadenopathy
Psych: Calm
Impression / Plan
-
I/P: 59F with HTN, hypothyroidism, morbid obesity, and JODY (on CPAP) who presented with acute cholecystitis
Outpatient Hand Sprayer: None
Paroxysmal atrial fibrillation
- In sinus rhythm
- Oral Anticoagulation: None SAFETY TRAINER
- [id number]: score at least 2 (HTN, female gender), adding on Hgba1c as she had fasting hyperglycemia, if she has diabetes anticoagulation is indicated
- No blood thinners for 72 hours post operatively per surgery
- Echocardiogram
- TSH & lipid panel in am
HTN
-BP above goal
-In the setting of pain and antiHTN medication on hold, resume when able
Acute cholecystitis S/P robotic Cholecystectomy with intraoperative cholangiogram by Dr Berman 01/09/2025
JODY, on CPAP
Obesity, BMI >50, she would benefit from weight loss
Data Reviewed
-
EKG: Report Reviewed by me
Labs: Labs Reviewed by me
Old Records: Reviewed
[2025-01-10 14:48] LABS: Glycohemoglobin (HgbA1c) 5.4 % (4.0-5.6)
[2025-01-10 18:00] LABS: ALT (SGPT) 120 U/L (0-35); AST (SGOT) 46 U/L (14-36); Albumin 3.7 g/dl (3.5-5.0); Alkaline Phosphatase 132 U/L (38-126); Blood Urea Nitrogen 16 mg/dl (7-17); Calcium 8.7 mg/dl (8.4-10.2); Carbon Dioxide 28 mmol/L (22-30); Chloride 108 mmol/L (98-107); Estimated Creatinine Clearance 105 ml/min; Glucose 107 mg/dl (70-99); Potassium 4.2 mmol/L (3.5-5.1); Sodium 141 mmol/L (135-145); Total Protein 6.1 g/dl (6.3-8.2); eGFR > 60.00
[2025-01-10] MEDS: FLEXERIL 10 MG PO (21:24)
[2025-01-11 03:00] VITALS: BP 122/69
[2025-01-11] MEDS: SYNTHROID 175 MCG PO (03:05)
[2025-01-11] MEDS: ZOSYN 50 IV (05:18)
[2025-01-11 08:00] VITALS: BP 128/71
--- NOTE | 2025-01-11 08:01 | W.PN.CD ---
Addendum entered and electronically signed by Jose J Westbrook MD 01/11/25 09:25:
I saw and examined the patient.
The CORE INSPECTOR's note was reviewed and I agree with the note.
Comment:
59F with HTN, hypothyroidism, morbid obesity, and JODY (on CPAP) who presented with acute cholecystitis. We were consulted for brief, transient intra-op AFIB. She feels well this morning despite some moderate abdominal pain postoperatively.
Telemetry has been normal sinus rhythm with no recurrence of atrial fibrillation.
Physical exam with regular rate and rhythm, no murmurs, no lower extremity edema, and clear lungs.
For her paroxysmal atrial fibrillation, she is now in sinus rhythm. No rate or rhythm control is necessary. Her TTE revealed normal LVEF and no significant valvular disease. We discussed lifestyle modifications including avoiding excessive
alcohol and weight loss. I advised her to get a pulse ox at home so that if she has palpitations, she can check for recurrence of A-fib. She does not require anticoagulation given her [id number] of 2. We will follow-up with her in the
outpatient setting.
Cardiology will sign off at this time. Please call with any additional questions or concerns.
Original Note:
Today's Communication / Plan
-
She has remained in SR. No further recommendations at this time. Will arrange OP follow-up.
Impression / Plan
-
I/P: 59F with HTN, hypothyroidism, morbid obesity, and JODY (on CPAP) who presented with acute cholecystitis. We were consulted for brief, transient intra-op AFIB.
Outpatient Gun Perforator: None
Paroxysmal atrial fibrillation
-has remained in sinus rhythm
-[id number] score 2 (HTN, female gender), so OAC not necessary at this time
-Echocardiogram 01/11/24: LV ejection fraction is 60-65%. No regional wall motion abnormalities are seen. Normal right ventricular size and function. No significant valvular disease.
-TSH is pending- await results
-OP follow-up- will arrange
-we discussed that in skilled nursing (after recovery), weight loss and exercise will be helpful, as well as avoidance of excess ETOH and continued compliance with CPAP for JODY.
HTN
-stable
-on lisinopril/HCTZ as OP- resume when able post-op
Acute cholecystitis S/P robotic Cholecystectomy with intraoperative cholangiogram by Dr Berman 01/09/2025: post-op management per surgery team
JODY, on CPAP- she is compliant
Obesity, BMI >50, she would benefit from weight loss, which we discussed
Physical Exam
Vital Signs/Labs
Vital Signs
Temp Pulse Resp BP Pulse Ox
98 F 66 16 122/69 96
01/11/25 03:00 01/11/25 03:00 01/11/25 03:00 01/11/25 03:00 01/11/25 03:00
01/10/25 08:42
01/10/25 17:29
LAB Results
01/08/25
09:44
Troponin I < 0.012
Physical Exam
Constitutional: No acute distress
EENT: Anicteric
Cardiovascular: Rhythm & rate is regular
Respiratory: Respiratory effort normal and Lungs clear to auscul.
Neuro/Psych: AO x 3
Data Reviewed
-
Date of Service: January 11, 2025
EKG: Other (Tele SR)
Echo: Report Reviewed by me (as noted)
[2025-01-11 08:57] LABS: ALT (SGPT) 97 U/L (0-35); AST (SGOT) 34 U/L (14-36); Albumin 3.5 g/dl (3.5-5.0); Alkaline Phosphatase 114 U/L (38-126); Blood Urea Nitrogen 14 mg/dl (7-17); Calcium 8.7 mg/dl (8.4-10.2); Carbon Dioxide 27 mmol/L (22-30); Chloride 110 mmol/L (98-107); Estimated Creatinine Clearance 105 ml/min; Glucose 97 mg/dl (70-99); HDL Cholesterol 44 mg/dl; LDL Cholesterol, Calculated 99 mg/dl; Potassium 3.9 mmol/L (3.5-5.1); Sodium 141 mmol/L (135-145); Total Bilirubin 0.9 mg/dl (0.2-1.3); Total Cholesterol 163 mg/dl (50-199); Total Protein 5.7 g/dl (6.3-8.2); Triglyceride 104 mg/dl (10-149); Very Low Density Lipoprotein 20 mg/dl (0-30); eGFR > 60.00
--- NOTE | 2025-01-11 09:15 | W.PN.GS2 ---
Today's Communication / Plan
-
DC home
Assessment / Plan
-
This is a 59-year-old female who presents with acute calculus cholecystitis now postoperative day 2 from a laparoscopic assisted robotic cholecystectomy with cholangiogram. There was no filling of the duodenum concerning for a possible obstructing
stone, however she has had improvement in pain post op and her LFTs have improved
OK for DC home with 3 additional days abx
DVT prophylaxis
Subjective Data
-
Date of Service: January 11, 2025
AFVSS, ambulating, voiding, april reg diet, pain controlled
Objective Data
-
Intake and Output
01/10/25 01/11/25 01/12/25
06:59 06:59 06:59
Intake Total 2049 1640 / 1640
Balance 2049 1640 / 1640
Intake:
Oral fluids 120 / 120 840 / 840
IV fluids (Total) 1880 / 1880 600 / 600
Normosol 200 / 200
IV piggybacks 50 / 50 200 / 200
Other:
Number of approximated MODERATE 2 2
amounts of urine
Number of approximated LARGE 2
amounts of urine
Vital Signs
Temp Pulse Resp BP Pulse Ox
98.2 F 70 18 128/71 98
01/11/25 08:00 01/11/25 08:00 01/11/25 08:00 01/11/25 08:00 01/11/25 08:00
Lab Results
01/10/25 08:42
01/11/25 08:23
Calcium Cancelled 01/11/25 08:23
Total Bilirubin Cancelled 01/11/25 08:23
Direct Bilirubin 0.3 mg/dl (0.0-0.4) 01/09/25 06:46
AST Cancelled 01/11/25 08:23
ALT Cancelled 01/11/25 08:23
Alkaline Phosphatase Cancelled 01/11/25 08:23
Total Protein Cancelled 01/11/25 08:23
Albumin Cancelled 01/11/25 08:23
Physical Exam
-
Gen: NAD
Abd: soft, obese, approp ttp, incisions cdi
Patient has a diego catheter: No
Patient has a central line: No
[2025-01-11] MEDS: PROTONIX 40 MG PO (09:17)
[2025-01-11] MEDS: LYRICA 200 MG PO (09:17)
[2025-01-11] MEDS: CYMBALTA DELAYED RELEASE 120 MG PO (09:17)
--- NOTE | 2025-01-11 09:17 | W.DS.TRANS ---
DC Summary - Accounting Manager Controller
-
Discharge Instructions:
Discharge Diagnosis/Procedures Acute cholecystitis status post robotic
cholecystectomy
Diet As tolerated
Activity No strenuous activity
Bathing Restrictions OK to Shower
Instructions:
Stand-Alone Forms:
Changes to Home Medications: No
Discharge Medications:
DC Medications w/original date entered in [facility]
cetirizine 10 mg tablet (Zyrtec) 10 mg PO DAILY Allergies 05/06/22
cholecalciferol (vitamin D3) 100 mcg (4,000 unit) capsule 100 mcg PO DAILY Supplement 05/06/22
cyclobenzaprine 10 mg tablet 10 mg PO HS Muscle Spasms 05/06/22
duloxetine 60 mg capsule,delayed release 120 mg PO DAILY Depression 05/06/22
esomeprazole magnesium 20 mg capsule,delayed release (Nexium) 20 mg PO DAILY Gastrointestinal Issue 05/06/22
fluticasone propionate 50 mcg/actuation nasal spray,suspension 1 spray intranasal BID Allergies 05/06/22
hydrocodone 5 mg-acetaminophen 325 mg tablet 1 tab PO Q6H PRN pain 05/06/22
levothyroxine 175 mcg tablet (Synthroid) 175 mcg PO DAILY@06 Thyroid 05/06/22
lisinopril 20 mg-hydrochlorothiazide 12.5 mg tablet 1 tab PO DAILY Blood Pressure 05/06/22
multivitamin 1 tab PO DAILY Supplement 05/06/22
pregabalin 200 mg capsule 200 mg PO TID Pain 05/06/22
rizatriptan 10 mg tablet 10 mg PO PRN PRN headaches 05/06/22
acetaminophen 325 mg tablet 650 mg (2 x 325 mg) PO Q6HPRN PRN mild pain #14 tabs 01/10/25
amoxicillin 500 mg-potassium clavulanate 125 mg tablet (Augmentin) 1 tab PO Q12H #6 tabs 01/10/25
ibuprofen 600 mg tablet 600 mg PO Q6H PRN pain #14 tabs 01/10/25
tramadol 50 mg tablet 25 mg (1/2 x 50 mg) PO Q6HPRN PRN severe pain/breakthrough pain #12 tabs 01/10/25
Home Medication Changes
Pending Results: No
[2025-01-11] MEDS: ZYRTEC 10 MG PO (09:18)
[2025-01-11] MEDS: NORCO 5/325 1 TABLET PO (09:24)
[2025-01-11 09:31] LABS: TSH Reflex To Free T4 0.79 uIU/ml (0.47-4.68)
--- NOTE | 2025-01-11 09:36 | CM ---
CM following re: discharge planning.
Reviewed pt's chart, met with pt.
Pt is POD#2 from a laparoscopic assisted robotic cholecystectomy with cholangiogram, doing well.
Discharge order noted. Pt is aware and she stated he is coming to transport her home.
No after care VN services indicated.
D/C plan: home no needs. to transport.
== END 2025-01-11 11:34 | disposition home or self-care (01) ==
LOC: PACU 13:50
PROVIDERS: Nurse Practitioner Gerontology; Registered Nurse; ATTENDING PHYSICIAN Surgery; CONSULT PHYSICIAN Internal Medicine; EMERGENCY PHYSICIAN Emergency Medicine
DX: K81.0 Acute cholecystitis (principal); K80.18 Calculus of gallbladder with other cholecystitis without obstruction
CPT/HCPCS: 47563; 88304; 71046; 74300; 76000; 76700; 80048; 80053; 80061; 82248; 83036; 83690; 84443; 84484; 85025; 85027; 93005; 93306; 96374; 96375; 99285; A4300; G0378; J1610; Q9950

== ENCOUNTER → 2025-04-27 07:16 | Outpatient (REF) | payer OTHER, SELFPAY | LOC: WDC 07:16 | DX: Z12.31 Encounter for screening mammogram for malignant neoplasm of breast (principal) | CPT/HCPCS: 77063; 77067 ==

== ENCOUNTER → 2025-05-10 09:54 | Outpatient (REF) | payer OTHER, SELFPAY | LOC: HWRAD 09:54 | PROVIDERS: ATTENDING PHYSICIAN Family Medicine | DX: R10.10 Upper abdominal pain, unspecified (principal); Z90.49 Acquired absence of other specified parts of digestive tract | CPT/HCPCS: 76700 ==